=== PATIENT | female | born 1960 | race Caucasian/White ===

== ENCOUNTER 2016-11-15 16:29 | Emergency (ER) | payer SELFPAY ==
[~2016-11-15] VITALS: Ht 160 cm; Wt 65.8 kg
[2016-11-15 16:34] VITALS: BP 197/93
[2016-11-15] MEDS ORDERED: ACET325T9 PO (16:41)
[2016-11-15] MEDS ORDERED: DIAZ5TAB PO (16:41)
[2016-11-15] MEDS ORDERED: NAPR500T PO (16:41)
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
[2016-11-15] MEDS ORDERED: ACETAMINOPHEN 325 MG TABLET. PO ONE (16:45)
[2016-11-15] MEDS ORDERED: DIPHTH,PERTUSS(ACELL),TET TOX 0.5 ML DISP.SYRIN. VAX IM ONE (16:45)
== END 2016-11-15 17:00 | disposition home or self-care (01) ==
LOC: ER 16:29
DX: S80.11XA Contusion of right lower leg, initial encounter (principal); F41.9 Anxiety disorder, unspecified; V49.88XA Car occupant (driver) (passenger) injured in other specified transport accidents, initial encounter; Y93.89 Activity, other specified; Y99.8 Other external cause status; Y92.488 Other paved roadways as the place of occurrence of the external cause
CPT/HCPCS: 90471; 90715; 99283-25

== ENCOUNTER 2019-01-28 14:58 | Emergency (ER) | payer BC, OTHER ==
[~2019-01-28] VITALS: Ht 160 cm; Wt 65.8 kg
[~2019-01-28 14:58] MED LIST: ACET325T9 PO; DIAZ5TAB PO; NAPR-683 PO
[2019-01-28 15:15] VITALS: BP 154/71
--- NOTE | 2019-01-28 15:40 | PHYS DOC ---
Past Medical History Past Medical History: No Pertinent History Past Surgical History: Hysterectomy Additional Past Surgical Histo: partial hysterectomy Alcohol Use: None Drug Use: None Adult General Chief Complaint Chief Complaint: LACERATION/AVULSION [facility] HPI Patient is a 58 year old email presents with a laceration to the right fourth digit. The patient states he was chopping vegetables about hour and a half ago and cut it with a kitchen knife. The patient rates her pain is 1 out of 10 and throbbing and states that she has not taken any medication prior to arrival. The patient states she's unable to use the digit like she normally is able to. Review of Systems Review of Systems Constitutional: Denies fever or chills [] Eyes: Denies change in visual acuity, redness, or eye pain [] HENT: Denies nasal congestion or sore throat [] Respiratory: Denies cough or shortness of breath [] Cardiovascular: No additional information not addressed in HPI [] GI: Denies abdominal pain, nausea, vomiting, bloody stools or diarrhea [] : Denies dysuria or hematuria [] Musculoskeletal: Denies back pain or joint pain [] Integument: Reports laceration to R fourth digit. Neurologic: Denies headache, focal weakness or sensory changes [] Endocrine: Denies polyuria or polydipsia [] Complete systems were reviewed and found to be within normal limits, except as documented in this note. Current Medications Current Medications Current Medications Medications (Trade) Dose Ordered Sig/[facility] Start Time Stop Time Status Last Admin Dose Admin Lidocaine HCl 20 ml 1X ONCE 01/28/19 15:45 01/28/19 15:46 DC 01/28/19 16:11 20 ML Neomycin/ Polymyxin/ Bacitracin (Triple Antibiotic Ointment) 1 pkt 1X ONCE 01/28/19 17:00 01/28/19 17:00 DC 01/28/19 16:57 1 PKT Allergies Allergies Allergies Coded Allergies Type Severity Reaction Last Updated Verified Sulfa (Sulfonamide Antibiotics) Allergy Intermediate RASH 11/15/16 Yes Physical Exam Physical Exam Constitutional: Well developed, well nourished, no acute distress, non-toxic appearance. [] HENT: Normocephalic, atraumatic, bilateral external ears normal, oropharynx moist, no oral exudates, nose normal. [] Eyes: PERRLA, EOMI, conjunctiva normal, no discharge. [] Neck: Normal range of motion, no tenderness, supple, no stridor. [] Cardiovascular:Heart rate regular rhythm, no murmur [] Lungs & Thorax: Bilateral breath sounds clear to auscultation [] Abdomen: Bowel sounds normal, soft, no tenderness, no masses, no pulsatile masses. [] Skin: laceration of 0.5 cm to R fourth digit. Neurovascular intact, unable to bend finger. Back: No tenderness, no CVA tenderness. [] Extremities: No tenderness, no cyanosis, no clubbing, ROM intact, no edema. [] Neurologic: Alert and oriented X 3, normal motor function, normal sensory function, no focal deficits noted. [] Psychologic: Affect normal, judgement normal, mood normal. [] Current Patient Data Vital Signs Vital Signs Date Time Temp Pulse Resp B/P (MAP) Pulse Ox O2 Delivery O2 Flow Rate FiO2 01/28/19 15:15 97.3 70 20 154/71 (98) 98 Room Air 97.3 EKG EKG [] Radiology/Procedures Radiology/Procedures Performed digital block by instilling 2% lidocaine in the 4th digit R hand. 3 mL of lidocaine was used. Indication: Laceration Procedure: The patient was placed in the appropriate position and anesthesia around the laceration was digital block. The area was then cleansed with 60 mL of normal saline copiously.. The laceration was closed with 3-0 Ethilon sutures (3). The wound area was then dressed with neosporin and dressing. Total repaired wound length: 0.5 cm. The patient tolerated the procedure. Complications: None. Course & Med Decision Making Course & Med Decision Making Pertinent Labs and Imaging studies reviewed. (See chart for details) Will perform digital block and suture fingers. Sutures finger. Unable to bend finger, am suspecting tendon involvement. [facility] Colleen Disclaimer Dragon Disclaimer This electronic medical record was generated, in whole or in part, using a voice recognition dictation system. Departure Departure Impression: Primary Impression: Laceration Disposition: 01 HOME, SELF-CARE Condition: STABLE Referrals: MARCO MURILLO Jr, MD (PCP) Patient Instructions: Laceration Care, Adult Additional Instructions: Thank you for visiting [facility]. We appreciate you trusting us with your care. If any additional problems come up don't hesitate to return to visit us. Please follow up with your primary care provider so they can plan additional care if needed and know about the problem that you had. If symptoms worsen come back to the Emergency Department. Any concerning symptoms that start such as chest pain, shortness of air, weakness or numbness on one side of the body, running high fevers or any other concerning symptoms return to the ER. Please follow up with Dr. Davion Crespo (Orthopedic Hand Surgery) at [facility]. The number to call and make an appointment is [phone]. Please be seen for this in the next week. Call tomorrow morning to make appointment and tell them you were seen in the ER and have a suspected tendon injury. Scripts Cephalexin (KEFLEX) 500 Mg Capsule 1 CAP PO BID for 7 Days, #14 CAP Prov: DAVION MCCLENDON APRN 01/28/19 DAVION MCCLENDON APRN Jan 28, 2019 15:40
[2019-01-28] MEDS: LIDOCAINE 2% 20 ML VIAL. IJ ONE (16:11)
[2019-01-28] MEDS: NEOMY/BACITR/POLYMYXIN OINT PACKET. TP ONE (16:57)
[2019-01-28] MEDS ORDERED: CEPH-264 PO (17:18)
== END 2019-01-28 16:58 | disposition home or self-care (01) ==
LOC: ER 14:58
DX: S61.214A Laceration without foreign body of right ring finger without damage to nail, initial encounter (principal); Z88.2 Allergy status to sulfonamides; Z90.710 Acquired absence of both cervix and uterus; W26.0XXA Contact with knife, initial encounter; Y93.89 Activity, other specified; Y92.000 Kitchen of unspecified non-institutional (private) residence as the place of occurrence of the external cause; Y99.8 Other external cause status
CPT/HCPCS: 12001; 99283; J2001